=== PATIENT | female | born 1975 | race Caucasian/White ===

== ENCOUNTER 2017-10-09 12:29 | Emergency (ER) | payer OTHER ==
[2017-10-09 12:36] VITALS: BP 106/49; PULSE 101; TEMP 99.3; BMI 17.9
--- NOTE | 2017-10-09 12:59 | PDOC ---
History of Present Illness - General Chief Complaint: Cold Symptoms Stated Complaint: SINUS Time Seen by Provider: 10/09/17 12:52 History Source: Patient Exam Limitations: No Limitations - History of Present Illness Initial Comments: CHIEF COMPLAINT: 42 y/o female with no significant PMH c/o fever and cold like symptoms x 4 days. HISTORY OF PRESENT ILLNESS: patient admits to fever of 101 at home with nasal congestion, pressure behind her eyes, watery eyes, cough, runny nose and achy. She has been taking 400mg of Motrin every 8 hours. She has also been using nose spray but she doesn't feel like she is improving. She denies LEVI, photophobia, phonophobia, n/v/d, hemoptysis, CP, SOB, abd pain. Vital signs on arrival are notable for pulse of 101. Temp 99.3. REVIEW OF SYSTEMS: GENERAL/CONSTITUTIONAL: +fever to 101. No weakness. No weight change. HEAD, EYES, EARS, NOSE AND THROAT: +watery eyes. +nasal congestion and runny nose. +pressure behind eyes. +sore throat. +dry cough CARDIOVASCULAR: No chest pain or shortness of breath. MUSCULOSKELETAL: No joint or muscle swelling or pain. No neck or back pain. SKIN: No rash or easy bruising. NEUROLOGIC: No headache, vertigo, loss of consciousness, or loss of sensation. PHYSICAL EXAM: GENERAL: The patient is awake, alert, and fully oriented, in no acute distress. Her eyes are puffy. She is congested. She looks non toxic but ill appearing. HEAD: Normal with no signs of trauma. Pain with palpation of maxillary sinuses. ENT: Pupils equal, round and reactive to light, extraocular movements intact, sclera anicteric, conjunctiva clear. Watery discharge from eyes. Erythematous posterior pharynx. LUNGS: Clear to auscultation bilaterally. Normal excursion. No respiratory distress or use of accessory muscles. NEUROLOGICAL: Normal speech, normal gait. CN II-XII grossly intact. SKIN: Warm, dry, normal turgor, no rashes or lesions noted. Past History - Past Medical History Allergies/Adverse Reactions: Allergies Allergy/AdvReac Type Severity Reaction Status Date / Time No Known Allergies Allergy Verified 10/09/17 12:30 Home Medications: Ambulatory Orders Azithromycin [Zithromax 250mg Tablets -] 250 mg PO UTDICT #6 tab 08/25/18 - Suicide/Smoking/Psychosocial Hx Smoking History: Never smoked Number of Cigarettes Smoked Daily: 2 Hx Alcohol Use: No Substance Use Type: None *Physical Exam - Vital Signs Last Vital Signs Temp Pulse Resp BP Pulse Ox 99.3 F 101 H 16 106/49 100 10/09/17 12:30 10/09/17 12:30 10/09/17 12:30 10/09/17 12:30 10/09/17 12:30 Medical Decision Making - Medical Decision Making A/P: 42 y/o female with sinusitis. Will send rx for zpack. Instructed her to continue with motrin and nasal spray and add OTC zyrtec or claritin. Pt instructed to f/u with her doctor next week and return to the ER with any worsening or concerning symptoms. The patient verbalizes understanding of all instructions, has no further questions and is awaiting discharge. *DC/Admit/Observation/Transfer Diagnosis at time of Disposition: Sinusitis Qualifiers: Sinusitis location: maxillary Chronicity: acute Recurrence: not specified as recurrent Qualified Code(s): J01.00 - Acute maxillary sinusitis, unspecified - Discharge Dispostion Disposition: HOME Condition at time of disposition: Good - Prescriptions Prescriptions: Azithromycin [Zithromax 250mg Tablets -] 250 mg PO UTDICT #6 tab - Referrals Referrals: Fred Recinos MD [Primary Care Provider] - Call tomorrow - Patient Instructions Printed Discharge Instructions: DI for Sinusitis Additional Instructions: Discharge INstructions: -A prescription for antibiotics has been sent to your pharmacy -Please continue taking your nasal spray -You may want to try over the counter claritin or zyrtec daily to also help with symptoms. -Follow up with your doctor next week -Return to the ER with any worsening or concerning symptoms - Post Discharge Activity
== END 2017-10-09 13:08 | disposition home or self-care (01) ==
LOC: JER 12:29 → JERFT 12:29
DX: J01.00 Acute maxillary sinusitis, unspecified (principal)
CPT/HCPCS: 99281-25